=== PATIENT | male | born 1955 | race Caucasian/White ===

== ENCOUNTER → 2016-11-26 | Outpatient (CLI) | payer OTHER ==
--- NOTE | 2016-11-26 15:13 | ECHOCARDIOGRAPHY REPORT ---
PROCEDURE PHYSICIAN: RINA KNUTSON DATE OF PROCEDURE: 11/26/2016 TWO DIMENSIONAL ECHOCARDIOGRAM REPORT PRIMARY PHYSICIAN: OTHER PHYSICIAN: REFERRING PHYSICIAN: Dr. Orozco ORDERING PHYSICIAN: INDICATION FOR THE PROCEDURE: Chest pain, dyspnea MEASUREMENTS DERIVED VALUES LV DIAMETER (LAX) NORMALS NORMALS Diastolic 3.6 (3.6-5.2) Eject. Fract. 60% (60%+/-6%) Systolic (2.3-3.9) Diastolic Vol. % Shortening (0.22-0.42) Systolic Vol. Aortic Root IVS THICKNESS Diastolic 1.1 (0.6-1.1) LVPW THICKNESS Diastolic 1.1 (0.6-1.1) LA DIAMETER Systolic 2.4 (2.1-3.7) FINDINGS: 1. Technical quality is good. 2. The left ventricle is normal in size with normal contractility. Systolic function appeared to be normal. Estimated ejection fraction 60%. 3. The left atrium is normal in size. No clot or thrombus were seen within the left atrium. 4. The right atrium and right ventricle are normal in size. No clot or thrombus were seen within the right side. 5. Mitral valve is normal in morphology with mild mitral regurgitation noted by color Doppler flow. No mitral valve prolapse. No mitral valve stenosis. 6. Aortic valve is trileaflet with normal opening and closing pattern. No significant aortic stenosis or regurgitation was seen. 7. Tricuspid valve is normal in morphology with mild tricuspid regurgitation noted by color Doppler flow. Doppler across tricuspid valve estimated pulmonary artery pressure of 11+ right atrial pressure. 8. Pulmonic valve is functioning normally. 9. No pericardial effusion. CONCLUSION: 1. Normal left ventricular size and systolic function. Estimated ejection fraction 60%. 2. Mild mitral and tricuspid regurgitation. 3. Estimated pulmonary artery pressure of 20 mmHg. Job ID: [id number] Dictated Date: 11/26/2016 14:45:12 Scrap Drop Operator Date: 11/26/2016 15:08:46 / alexandre
== END ==
LOC: CARD 13:03
PROVIDERS: ATTEND Family Medicine
DX: R07.9 Chest pain, unspecified (principal); R06.00 Dyspnea, unspecified
CPT/HCPCS: 93017; 93306

== ENCOUNTER 2017-06-25 13:53 | Outpatient (CLI) | payer OTHER ==
[~2017-06-25] VITALS: Ht 160 cm; Wt 68.0 kg
[2017-06-25] MEDS ORDERED: methylPREDNISolone 80 MG/ML (DEPO MEDROL) VIAL ONE (14:07)
[2017-06-25 14:28] VITALS: BP 143/82
[2017-06-25 15:08] VITALS: BP 152/89
--- NOTE | 2017-06-29 22:24 | OPERATIVE REPORT ---
DATE OF SERVICE: 06/25/2017 DIAGNOSIS: Lumbar radiculopathy. PROCEDURE: Fluoroscopic guided interlaminar epidural steroid injection. PROCEDURE IN DETAIL: After obtaining informed consent from the patient, the patient's chart was reviewed. The patient was then brought to the procedure room and placed in the prone position. A timeout was performed. The back was prepped with antiseptic solution and under fluoro guidance, the patient's lumbar spine was identified at the level of L4-L5. The L4-L5 vertebra was identified with fluoro guidance and approximately 2 mL of 1.5% lidocaine solution was used to anesthetize the skin directly down to the pedicle of the L4-L5 and under fluoroscopic guidance, the tract was anesthetized up to the interlaminar space and the ligamentum flavum. This needle was withdrawn. Then, a 20-gauge 3.5 inch Tuohy needle was then directed following the same tract that was anesthetized with the spinal needle. Using loss of resistance, the epidural space was identified and then the syringe was switched for contrast solution which was injected, approximately 1 mL. After secondary confirmation of epidural access, another syringe was placed and 80 mg of Depo-Medrol was injected. The Tuohy needle was then flushed out with approximately 2 mL of the normal saline used from the loss of resistance syringe. Band-Aids were applied to all the procedure sites. The patient tolerated the procedure well and was taken to the recovery room in stable condition. COMPLICATIONS: None. Job ID: [id number] DocumentID: [id number] Dictated Date: 06/29/2017 09:35:17 Lithographic Plate Maker Date: 06/29/2017 16:53:05 Dictated By: JANY MARLOW DO
== END 2017-06-25 15:09 | disposition home or self-care (01) ==
LOC: CARD 13:53
PROVIDERS: ATTEND Pain Medicine Interventional Pain Medicine
DX: M54.16 Radiculopathy, lumbar region (principal)
CPT/HCPCS: 62323

== ENCOUNTER → 2017-10-27 | Outpatient (CLI) | payer OTHER ==
--- NOTE | 2017-10-27 08:45 | Diagnostic Imaging Report ---
PROCEDURE: MRI lumbar spine. TECHNIQUE: Multiplanar, multisequence MRI of the lumbar spine was performed without contrast. DATE: October 27, 2017. COMPARISON: MRI lumbar spine April 03, 2016. INDICATION: 62-year-old male, fall on March 07, 2016. Persistent low back pain. FINDINGS: There is normal lumbosacral spine alignment. There is no evidence of marrow infiltrating or replacing process. There is no visualized pars interarticularis defect. There is no compression deformity or otherwise noted fracture. There is no prominent bone marrow edema. The visualized cord and conus medullaris is unremarkable and terminates at the L1 level. The disc heights are well preserved. L1-L2: There is no disc bulge. The facet joints and ligamentum flavum are unremarkable. There is no foraminal narrowing. There is no spinal canal stenosis. L2-L3: There is no disc bulge. The facet joints and ligamentum flavum are unremarkable. There is no foraminal narrowing. There is no spinal canal stenosis. L3-L4: There is no disc bulge. The facet joints and ligamentum flavum are unremarkable. There is no foraminal narrowing. There is no spinal canal stenosis. L4-L5: There is minimal diffuse disc bulge. The facet joints and ligamentum flavum are unremarkable. There is mild bilateral foraminal narrowing. There is no spinal canal stenosis. L5-S1: There is an annular tear with a left paracentral disc protrusion which contacts the descending left S1 nerve root. The facet joints and ligamentum flavum are unremarkable. There is no foraminal narrowing. There is no spinal canal stenosis. IMPRESSION: 1. L5-S1 annular tear with left paracentral disc protrusion contacting the descending left S1 nerve root. This is unchanged since April 03, 2016. There is no foraminal or spinal stenosis at this level. 2. L4-L5 minimal diffuse disc bulge with mild bilateral foraminal narrowing. This is also unchanged since April 03, 2016. Dictated by: Dictated on workstation # [id number]
== END ==
LOC: RAD 07:54
PROVIDERS: ATTEND Physician Assistant
DX: M48.061 Spinal stenosis, lumbar region without neurogenic claudication (principal); M47.27 Other spondylosis with radiculopathy, lumbosacral region; M51.17 Intervertebral disc disorders with radiculopathy, lumbosacral region
CPT/HCPCS: 72148

== ENCOUNTER → 2018-08-19 | Outpatient (CLI) | payer OTHER ==
--- NOTE | 2018-08-19 18:00 | Diagnostic Imaging Report ---
PROCEDURE: MRI right joint upper extremity without contrast. TECHNIQUE: Multiplanar, multisequence non contrast-enhanced MRI of the right upper extremity was accomplished. INDICATION: Pain, rotator cuff tear. COMPARISON: March 18, 2016. FINDINGS: Moderate degenerative changes of the acromioclavicular joint are identified, worsened since the prior examination. This is associated with significant marrow edema about the acromioclavicular joint, particularly within the distal clavicle. This has significantly increased since the prior examination. Bursal surface tearing of the supraspinatus tendon is identified. Rim-rent tearing of the infraspinatus tendon is noted posteriorly, best seen on series 5, image 18. The long head of the biceps tendon is normally located. No significant shoulder joint effusion. The glenoid labrum is not optimally evaluated without the use of intra-articular contrast, though it is grossly unremarkable. No significant muscular atrophy or hypertrophy. No muscular edema. Besides the acromioclavicular joint, bone marrow signal intensity is otherwise unremarkable. IMPRESSION: 1. 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 2. Rim-rent tearing of the posterior fibers of the infraspinatus tendon. 3. Bursal surface tearing of the supraspinatus tendon. 4. Additional findings, as above. Dictated by: Dictated on workstation # [id number]
== END ==
LOC: RAD 15:15
PROVIDERS: ATTEND Orthopaedic Surgery
DX: S46.811A Strain of other muscles, fascia and tendons at shoulder and upper arm level, right arm, initial encounter (principal); M75.111 Incomplete rotator cuff tear or rupture of right shoulder, not specified as traumatic; M19.011 Primary osteoarthritis, right shoulder; M75.101 Unspecified rotator cuff tear or rupture of right shoulder, not specified as traumatic
CPT/HCPCS: 73221

== ENCOUNTER 2020-03-23 05:39 | Outpatient (RCR) | payer MEDICARE, OTHER ==
[~2020-03-23] VITALS: Ht 160 cm; Wt 68.6 kg
[2020-03-23] MEDS ORDERED: CHOL100048 PO (10:08)
[2020-03-23] MEDS ORDERED: ATOR40TA70 PO (10:13)
== END 2020-03-23 10:17 | disposition home or self-care (01) ==
LOC: PREOP 05:39
PROVIDERS: ATTEND Surgery
DX: Z01.818 Encounter for other preprocedural examination (principal)

== ENCOUNTER 2023-01-25 10:12 | Emergency (ER) | payer MEDICARE, OTHER ==
[~2023-01-25] VITALS: Ht 157.4 cm; Wt 68.6 kg
[~2023-01-25 10:12] MED LIST: ATOR40TA70 PO; CHOL100048 PO
[2023-01-25 10:43] LABS: BASOPHILS % (AUTO) 1 % (0-10); EOSINOPHILS # (AUTO) 0.4 10^3/uL (0.0-0.3); EOSINOPHILS % (AUTO) 5 % (0-10); HEMATOCRIT 49 % (40-54); HEMOGLOBIN 15.9 g/dL (13.3-17.7); LYMPHOCYTES # (AUTO) 1.9 10^3/uL (1.0-4.0); LYMPHOCYTES % (AUTO) 22 % (12-44); MEAN CORPUSCULAR HEMOGLOBIN 31 pg (25-34); MEAN CORPUSCULAR HGB CONC 33 g/dL (32-36); MEAN CORPUSCULAR VOLUME 94 fL (80-99); MEAN PLATELET VOLUME 10.8 fL (9.0-12.2); MONOCYTES # (AUTO) 0.6 10^3/uL (0.0-1.0); MONOCYTES % (AUTO) 7 % (0-12); NEUTROPHILS # (AUTO) 5.3 10^3/uL (1.8-7.8); NEUTROPHILS % (AUTO) 64 % (42-75); PLATELET COUNT 229 10^3/uL (130-400); WHITE BLOOD COUNT 8.3 10^3/uL (4.3-11.0)
[2023-01-25 10:47] LABS: ALBUMIN 4.7 GM/DL (3.2-4.5); CHLORIDE 106 MMOL/L (98-107); SODIUM 141 MMOL/L (135-145)
[2023-01-25 10:50] LABS: GLUCOSE 107 MG/DL (70-105); TOTAL PROTEIN 7.7 GM/DL (6.4-8.2)
[2023-01-25 10:51] LABS: BILIRUBIN,TOTAL 0.7 MG/DL (0.1-1.0); CARBON DIOXIDE 24 MMOL/L (21-32)
[2023-01-25 10:53] LABS: ALKALINE PHOSPHATASE 72 U/L (40-136); CREATININE SERUM 1.02 MG/DL (0.60-1.30); GFR ESTIMATED 81
[2023-01-25 10:54] LABS: BUN/CREATININE RATIO 14; PROTHROMBIN TIME PATIENT 13.5 SEC (12.2-14.7)
[2023-01-25 10:56] LABS: ALANINE AMINOTRANSFERASE 37 U/L (0-55); MAGNESIUM 2.1 MG/DL (1.6-2.4)
--- NOTE | 2023-01-25 10:57 | ED General ---
General Chief Complaint: Respiratory Problems Stated Complaint: SOA Nursing Triage Note: C/O SOB X 3 DAYS, WAS GIVEN AN ALBUTEROL INHALER BY HIS DAUGHTER 3 DAYS AGO AND IT SEEMED TO HELP. TODAY SOB IS WORSENING. Source of Information: Patient, Family Exam Limitations: No Limitations History of Present Illness Date Seen by Provider: Jan 25, 2023 Time Seen by Provider: 10:19 Initial Comments This 67-year-old gentleman presents to emergency room with complaints of 3 days of shortness of air and wheezing. He has been using his daughter's albuterol inhaler which does seem to help some. He complains of dyspnea on exertion but denies chest pain. He has no cough or fever. He had similar symptoms starting a couple of weeks ago and received a steroid shot. This seemed to help for several days. He has been having significant allergy problems. He quit taking his antihistamine when he received the steroid injection and has not resumed yet. He has been spending much time out side spraying plants and mowing. His primary care provider is Dr. Orozco. He has no known cardiopulmonary problems. Dr. Orozco is his primary care provider. Allergies and Home Medications Allergies Coded Allergies: shellfish derived (Verified Allergy, Unknown, 01/27/23) Patient Home Medication List Home Medication List Reviewed: Yes Atorvastatin Calcium (Atorvastatin Calcium) 40 Mg Tablet, 40 MG PO DAILY, (Reported) Entered as Reported by: PAO RIVERO on 03/23/20 1013 Cholecalciferol (Vitamin D3) (Vitamin D3) 25 Mcg Capsule, 25 MCG PO DAILY, (Reported) Entered as Reported by: PAO RIVERO on 03/23/20 1008 Prednisone (Prednisone) 10 Mg Tab, 1 TAB PO UD Prescribed by: DELMY SANTORO on 01/25/23 1244 Review of Systems Review of Systems Constitutional: no symptoms reported EENTM: see HPI Respiratory: see HPI Cardiovascular: no symptoms reported Gastrointestinal: no symptoms reported Genitourinary: no symptoms reported Musculoskeletal: no symptoms reported Skin: no symptoms reported Psychiatric/Neurological: No Symptoms Reported Hematologic/Lymphatic: No Symptoms Reported Past Tyhwqel-Hwgivb-Tnyrhy Hx Patient Social History Tobacco Use?: No Use of E-Cig and/or Vaping dev: No Substance use?: No Alcohol Use?: Yes Alcohol type: Beer Alcohol Frequency: Daily (6-10) Pt feels they are or have been: No Seasonal Allergies Seasonal Allergies: Yes (MILD) Past Medical History Surgery/Hospitalization HX: DENIES VISECTOMY Surgeries: Yes Vasectomy Respiratory: No Cardiac: Yes High Cholesterol Neurological: No Sexually Transmitted Disease: No HIV/AIDS: No Genitourinary: No Gastrointestinal: Yes (BLOOD IN STOOLS, MILD REFLUX) Gastroesophageal Reflux Musculoskeletal: No Endocrine: No HEENT: Yes (GLASSES) Loss of Vision: Denies Hearing Impairment: Hard of Hearing, Bilateral Hearing Aide Cancer: No Psychosocial: No Integumentary: No Blood Disorders: No Adverse Reaction/Blood Tranf: No (N/A) Physical Exam Vital Signs Vital Signs - First Documented 01/25/23 10:17 Temp 37.1 Pulse 87 Resp 18 B/P (MAP) 157/123 (134) Pulse Ox 96 O2 Delivery Room Air Capillary Refill : Less Than 3 Seconds Height, Weight, BMI Height: 5'3.00" Weight: 150lbs. 0.0oz. 68.586609ku; 27.00 BMI Method:Estimated General Appearance: No Apparent Distress, WD/WN HEENT: PERRL/EOMI, Normal ENT Inspection, Pharynx Normal Neck: Normal Inspection; No JVD Respiratory: Lungs Clear, Normal Breath Sounds, No Accessory Muscle Use, No Respiratory Distress, Other (prolonged expiratory phase) Cardiovascular: Regular Rate, Rhythm, No Edema Gastrointestinal: Non Tender, Soft Extremity: Normal Inspection, No Pedal Edema Neurologic/Psychiatric: Alert, Oriented x3, No Motor/Sensory Deficits, Normal Mood/Affect Skin: Normal Color, Warm/Dry Progress/Results/Core Measures Suspected Sepsis SIRS Temperature: Pulse: 87 Respiratory Rate: 18 Laboratory Tests 01/25/23 10:36: White Blood Count 8.3 Blood Pressure 157 /123 Mean: 134 Laboratory Tests 01/25/23 10:22: Creatinine 1.02, INR Comment 1.0, Total Bilirubin 0.7 01/25/23 10:36: Platelet Count 229 Results/Orders Lab Results Laboratory Tests Test 01/25/23 10:22 01/25/23 10:29 01/25/23 10:36 Range/Units Prothrombin Time 13.5 12.2-14.7 SEC INR Comment 1.0 0.8-1.4 Activated Partial Thromboplast Time 29 24-35 SEC Sodium Level 141 135-145 MMOL/L Potassium Level 5.0 3.6-5.0 MMOL/L Chloride Level 106 98-107 MMOL/L Carbon Dioxide Level 24 21-32 MMOL/L Anion Gap 11 5-14 MMOL/L Blood Urea Nitrogen 14 7-18 MG/DL Creatinine 1.02 0.60-1.30 MG/DL Estimat Glomerular Filtration Rate 81 BUN/Creatinine Ratio 14 Glucose Level 107 H 70-105 MG/DL Calcium Level 10.0 8.5-10.1 MG/DL Corrected Calcium 8.5-10.1 MG/DL Magnesium Level 2.1 1.6-2.4 MG/DL Total Bilirubin 0.7 0.1-1.0 MG/DL Aspartate Amino Transf (AST/SGOT) 22 5-34 U/L Alanine Aminotransferase (ALT/SGPT) 37 0-55 U/L Alkaline Phosphatase 72 40-136 U/L Myoglobin 25.6 10.0-92.0 NG/ML Troponin I < 0.028 <0.028 NG/ML Total Protein 7.7 6.4-8.2 GM/DL Albumin 4.7 H 3.2-4.5 GM/DL Serum Alcohol < 10 <10 MG/DL Influenza Type A (RT-PCR) Not Detected Not Detecte Influenza Type B (RT-PCR) Not Detected Not Detecte SARS-CoV-2 RNA (RT-PCR) Not Detected Not Detecte White Blood Count 8.3 4.3-11.0 10^3/uL Red Blood Count 5.16 4.30-5.52 10^6/uL Hemoglobin 15.9 13.3-17.7 g/dL Hematocrit 49 40-54 % Mean Corpuscular Volume 94 80-99 fL Mean Corpuscular Hemoglobin 31 25-34 pg Mean Corpuscular Hemoglobin Concent 33 32-36 g/dL Red Cell Distribution Width 12.2 10.0-14.5 % Platelet Count 229 130-400 10^3/uL Mean Platelet Volume 10.8 9.0-12.2 fL Immature Granulocyte % (Auto) 1 % Neutrophils (%) (Auto) 64 42-75 % Lymphocytes (%) (Auto) 22 12-44 % Monocytes (%) (Auto) 7 0-12 % Eosinophils (%) (Auto) 5 0-10 % Basophils (%) (Auto) 1 0-10 % Neutrophils # (Auto) 5.3 1.8-7.8 10^3/uL Lymphocytes # (Auto) 1.9 1.0-4.0 10^3/uL Monocytes # (Auto) 0.6 0.0-1.0 10^3/uL Eosinophils # (Auto) 0.4 H 0.0-0.3 10^3/uL Basophils # (Auto) 0.0 0.0-0.1 10^3/uL Immature Granulocyte # (Auto) 0.1 0.0-0.1 10^3/uL My Orders Orders - DELMY PALOMINO MD Covid 19 Inhouse Test (01/25/23 10:20) Influenza A And B By Pcr (01/25/23 10:20) Cbc With Automated Diff (01/25/23 10:36) Magnesium (01/25/23 10:36) Ekg Tracing (01/25/23 10:36) Comprehensive Metabolic Panel (01/25/23 10:36) Myoglobin Serum (01/25/23 10:36) Protime With Inr (01/25/23 10:36) Partial Thromboplastin Time (01/25/23 10:36) O2 (01/25/23 10:36) Monitor-Rhythm Ecg Trace Only (01/25/23 10:36) Ed Iv/Invasive Line Start (01/25/23 10:36) Troponin I Rene (01/25/23 10:36) Alcohol (01/25/23 10:36) Chest Pa/Lat (2 View) (01/25/23 10:36) Albuterol Inhaler (Albuterol) (01/25/23 12:37) Vital Signs/I&O 01/25/23 01/25/23 01/25/23 10:17 10:17 13:15 Temp 37.1 Pulse 87 78 Resp 18 19 B/P (MAP) 157/123 (134) 138/95 Pulse Ox 96 96 O2 Delivery Room Air Room Air Room Air Capillary Refill : Less Than 3 Seconds Blood Pressure Mean: 134 Progress Note : Progress Note Patient was interviewed and examined. He was noted to have no tachycardia, chest pain, hypoxia, or lower extremity symptoms. He denies any recent travel or sedentary periods of time. Because he has had no formal cardiopulmonary work-up, we did proceed with evaluation that included CBC, CMP, troponin, and myoglobin. These labs were all reviewed and interpreted by me as unremarkable. Influenza and COVID swabs were negative. Alcohol level was undetectable. EKG interpreted by me demonstrating no ischemic changes or arrhythmia. Chest x-ray report was reviewed. There was no evidence of pneumonia. Patient received an albuterol inhaler with a spacer. This improved his symptoms. Patient most likely has allergy or viral induced bronchitis. Discharge instructions were reviewed as below. ECG Initial ECG Impression Date: Jan 25, 2023 Initial ECG Impression Time: 11:13 Initial ECG Rate: 82 Initial ECG Rhythm: Normal Sinus Initial ECG Intervals: Normal Initial ECG Impression: Normal Comment Normal sinus rhythm with no ST elevation or depression. No abnormal intervals or axis deviation. Diagnostic Imaging Diagonstic Imaging: Xray Plain Films/CT/US/NM/MRI: chest Comments NAME: FAVIAN ALEJANDRO MED REC#: [id number] PT STATUS: DEP ER : 1955 PHYSICIAN: DELMY PALOMINO MD ADMIT DATE: 01/25/23/ER Signed Date of Exam:01/25/23 CHEST PA/LAT (2 VIEW) INDICATION: Dyspnea on exertion. COMPARISON: None. DISCUSSION: Two views of the chest were obtained. Normal heart size. No consolidation, pleural fluid, or pneumothorax. No osseous abnormality. IMPRESSION: Negative chest. Dictated by: Dictated on workstation # [id number] Dict: 01/25/23 1200 Trans: 01/25/23 1451 [id number] Interpreted by: CHOCO RODRIGEZ MD Electronically signed by: CHOCO RODRIGEZ MD 01/25/23 1451 Departure Impression Primary Impression: Acute bronchitis Qualified Codes: J20.9 - Acute bronchitis, unspecified Additional Impressions: Dyspnea on exertion Seasonal allergies Disposition: 01 HOME, SELF-CARE Condition: Stable Departure-Patient Inst. Decision time for Depature: 12:39 Referrals: THAO OROZCO DO (PCP/Family) Primary Care Physician Patient Instructions: Bronchitis, Adult ED Add. Discharge Instructions: Your work-up in the emergency room was relatively unremarkable. There was no evidence of infection such as pneumonia. Your heart and lung work-up revealed no major problems. You may be experiencing an acute bronchitis triggered by a virus or allergies. Use your inhaler with the spacer chamber 1 to 4 puffs as needed for shortness of air or wheezing. Do not exceed 4 puffs in a 4-hour period of time. If you are requiring more treatments than that, you need to return to the emergency room for further evaluation. Use your prednisone steroids as prescribed. Take prednisone early in the day to avoid sleep disturbance and with food or milk to avoid stomach upset. Follow-up with your primary care provider in the next 1 to 2 weeks. Call on Thursday for an appointment. You should continue using an masw-wme-iaoxrdq long-acting antihistamine such as Xyzal, Claritin, or Zyrtec. The generic equivalents of these medications should work the same and are less expensive. You may additionally use a nasal steroid spray such as Flonase or generic fluticasone. Use 2 sprays per nostril daily. Return to the ER if you have worsening symptoms despite following these ins tructions. All discharge instructions reviewed with patient and/or family. Voiced understanding. Scripts Prednisone (Prednisone) 10 Mg Tab 1 TAB PO UD, #20 TAB Take 4 tabs daily for 2 days, then 3 tabs daily for 2 days, then 2 tabs daily for 2 days, then 1 tab daily for 2 days Prov: DELMY PALOMINO MD 01/25/23 Copy Copies To 1: THAO OROZCO JOSHUA T MD Jan 25, 2023 10:57
--- NOTE | 2023-01-25 12:08 | Diagnostic Imaging Report ---
INDICATION: Dyspnea on exertion. COMPARISON: None. DISCUSSION: Two views of the chest were obtained. Normal heart size. No consolidation, pleural fluid, or pneumothorax. No osseous abnormality. IMPRESSION: Negative chest. Dictated by: Dictated on workstation # [id number]
[2023-01-25] MEDS ORDERED: RT-ALBUTEROL HFA 8.5 GM INHALER IH STA (12:37)
[2023-01-25] MEDS ORDERED: PRD10T PO (12:44)
[2023-01-25 13:15] VITALS: BP 138/95
== END 2023-01-25 13:15 | disposition home or self-care (01) ==
LOC: EDUNIT# 10:12 → ER 10:15
DX: J20.9 Acute bronchitis, unspecified (principal); J30.2 Other seasonal allergic rhinitis; Z20.822 Contact with and (suspected) exposure to COVID-19
CPT/HCPCS: 71046; 80053; 83735; 83874; 84484; 85025; 85610; 85730; 87636; 93041; G0480; 36415; 80320

== ENCOUNTER → 2023-05-05 | Outpatient (CLI) | payer MEDICARE, OTHER ==
[~2023-05-05] MED LIST changes: +PRD10T PO; +RT-ALBUTEROL SULF 2.5 MG/3 ML PRE-MIX VIAL INH ONE
== END ==
LOC: RT 10:27
PROVIDERS: ATTEND Family Medicine
DX: R06.00 Dyspnea, unspecified (principal)
CPT/HCPCS: 94060; 94726; 94729

== ENCOUNTER → 2023-05-14 | Outpatient (CLI) | payer MEDICARE, OTHER ==
[~2023-05-14] MED LIST changes: -RT-ALBUTEROL SULF 2.5 MG/3 ML PRE-MIX VIAL INH ONE
--- NOTE | 2023-05-14 13:16 | Diagnostic Imaging Report ---
EXAMINATION: CT chest without contrast. TECHNIQUE: Multiple contiguous axial images were obtained through the chest without the use of intravenous contrast. All CT scans use one or more of the following dose optimizing techniques: automated exposure control, MA and/or KvP adjustment based on patient size and exam type or iterative reconstruction. HISTORY: Shortness of breath COMPARISON: None available. FINDINGS: Thyroid: The thyroid is normal. Mediastinum: Heart size is normal without significant pericardial effusion. Calcifications of the aorta and coronary vessels. Thoracic aorta is normal in caliber. No suspicious lymphadenopathy. Lungs and airways: The lungs are clear without consolidation, pleural effusion, or pneumothorax. There is no suspicious pulmonary lesion. The airways are normal. Upper abdomen: Findings of geographic hepatic steatosis. Musculoskeletal: No suspicious osseous lesion or compression fracture. IMPRESSION: 1. No acute abnormality in the chest. 2. Geographic hepatic steatosis. Dictated by: Dictated on workstation # [id number]
== END ==
LOC: RAD 09:51
PROVIDERS: ATTEND Family Medicine
DX: J44.9 Chronic obstructive pulmonary disease, unspecified (principal); K76.0 Fatty (change of) liver, not elsewhere classified; R05.3 Chronic cough
CPT/HCPCS: 71250